=== PATIENT | male | born 1985 | race Caucasian/White ===

== ENCOUNTER 2024-05-07 16:31 | Outpatient (CLI) | payer BC ==
[2024-05-07 17:13] LABS: #Basophils 0.07 10x3/uL (0.0-0.2); #Eosinphils 0.08 10x3/uL (0.0-0.5); #Monocytes 0.69 10x3/uL (0.0-1.1); #Neutrophils 5.05 10x3/uL (1.5-8.4); %Basophils 0.9 % (0.0-2.0); %Lymphocytes 26.4 % (18.0-47.0); %Monocytes 8.6 % (0.0-10.0); %Neutrophils 62.7 % (40.0-75.0); Hematocrit 42.5 % (38.8-50.0); Hemoglobin 14.4 g/dL (13.5-17.5); Mean Corpuscular HGB CONC 33.9 g/dL (32.0-36.0); Mean Corpuscular Volume 88.5 fL (81.2-95.1); Platelet Count 273 10x3/uL (150-450); RBC Distribution Width 11.9 % (11.5-14.5)
[2024-05-07 17:30] LABS: Anion Gap 13 mmol/L (10-20); BUN (Urea Nitrogen) 13 mg/dL (8.9-20.6); Calc. Creatinine Clearance 0 mL/min (70-130); Calcium 9.8 mg/dL (7.8-10.44); Carbon Dioxide 28 mmol/L (22-29); Chloride 101 mmol/L (98-107); Estimated GFR 90; Glucose 109 mg/dL (70-105); Sodium 138 mmol/L (136-145)
== END 2024-05-07 16:32 | disposition home or self-care (01) ==
LOC: CSHLAB 16:31
PROVIDERS: ATTEND Surgery
DX: Z01.812 Encounter for preprocedural laboratory examination (principal); K43.9 Ventral hernia without obstruction or gangrene
CPT/HCPCS: 80048; 85025

== ENCOUNTER 2024-05-14 09:03 | Day surgery (SDC) | payer BC ==
[2024-05-07 16:45] VITALS: BMI 25.0
[2024-05-14] MEDS ORDERED: EPINEPHrine 1 MG/ML VIAL ONE (09:45)
[2024-05-14] MEDS ORDERED: Bupivacaine 0.25% HCL 30 ML VIAL ONE (09:45)
[2024-05-14] MEDS ORDERED: CEFAZOLIN 2 GM VIAL ONE (11:00)
[2024-05-14] MEDS ORDERED: fentaNYL 50 mcg/mL 1 mL Vial ONE (11:01)
[2024-05-14] MEDS ORDERED: PROPOFOL 40 ML ONE (11:01)
[2024-05-14] MEDS ORDERED: Midazolam HCl 2 mg/2 ml Vial ONE (11:01)
[2024-05-14] MEDS ORDERED: Lidocaine 2% PF 5 ML VIAL ONE (11:01)
[2024-05-14] MEDS ORDERED: Ketorolac Tromethamine 30 MG (1 mL) VIAL ONE (11:25)
[2024-05-14] MEDS ORDERED: Ondansetron PF 4 MG/2 ML Vial ONE (11:25)
[2024-05-14] MEDS ORDERED: Dexamethasone 4 mg/ml Vial ONE ×2 (11:25)
== END 2024-05-14 13:30 | disposition home or self-care (01) ==
LOC: CSHSDC 09:03
PROVIDERS: ATTEND Surgery
PROC: 0WUF0JZ Supplement Abdominal Wall with Synthetic Substitute, Open Approach (ICD-10-PCS; principal; 2024-05-14)
DX: K43.9 Ventral hernia without obstruction or gangrene (principal)
CPT/HCPCS: C1781; J0171; J0665; J1100; J1885; J2001; J2250; J2405; J2704; J3010